=== PATIENT | female | born 1975 | race African-American/Black ===

== ENCOUNTER 2024-09-14 12:16 | Emergency (ER) | payer SELFPAY ==
[~2024-09-14] VITALS: Ht 172.7 cm; Wt 104.3 kg
[2024-09-14 12:20] VITALS: BP 117/71; TEMP 98.3
[2024-09-14] MEDS ORDERED: CYCLOBENZAPRINE 10 MG TABLET ONE (13:00)
[2024-09-14] MEDS ORDERED: IBUPROFEN 400 MG TABLET ONE (13:00)
[2024-09-14] MEDS ORDERED: CYCL5TAB PO (13:01)
[2024-09-14] MEDS: CYCLOBENZAPRINE 10 MG TABLET PO ONE (13:02)
[2024-09-14] MEDS: IBUPROFEN 400 MG TABLET PO ONE (13:02)
[2024-09-14 13:14] VITALS: O2SAT 96
== END 2024-09-14 13:15 | disposition home or self-care (01) ==
LOC: ER 12:16
DX: M54.50 Low back pain, unspecified (principal)